=== PATIENT | female | born 1965 | race Caucasian/White ===

== ENCOUNTER → 2017-02-08 | Outpatient (CLI) | payer BC, OTHER ==
[~2017-02-08] MED LIST: LORTAB 5/500 501 TAB PO; NO HOME MEDICATIONS
== END ==
LOC: MC.RAD 10:16
DX: Z12.31 Encounter for screening mammogram for malignant neoplasm of breast (principal)

== ENCOUNTER 2017-10-03 19:20 | Emergency (ER) | payer BC, OTHER ==
[~2017-10-03] VITALS: Ht 160 cm; Wt 68.0 kg
[2017-10-03 19:30] VITALS: BP 160/67; TEMP 97.7
[2017-10-03 19:40] LABS: COLLECTION METHOD CLEAN CATCH
[2017-10-03 19:48] LABS: PH 7 (5-8); SQUAMOUS EPITHELIAL 0-2 /hpf; URINE APPEARANCE Clear; URINE BACTERIA None Seen /hpf; URINE BILIRUBIN Negative (NEGATIVE); URINE BLOOD 3+ (NEGATIVE); URINE COLOR Straw; URINE GLUCOSE Negative (NEGATIVE); URINE KETONE Negative (NEGATIVE); URINE LEUKOCYTE ESTERASE 3+ (NEGATIVE); URINE NITRATE Negative (NEGATIVE); URINE PROTEIN(semi-quant) Negative (NEGATIVE); URINE RBC None Seen /hpf; URINE UROBILINOGEN Negative (NEGATIVE)
[2017-10-03] MEDS ORDERED: TAPAZOLE5 MG PO (19:55)
[2017-10-03] MEDS ORDERED: PYRIDIUM 100MG100 MG PO (20:27)
[2017-10-03] MEDS ORDERED: CEFTIN 250250 MG/TAB PO (20:27)
[2017-10-03 20:42] VITALS: PULSE 80
== END 2017-10-03 20:39 | disposition home or self-care (01) ==
LOC: COL.ER 19:20
PROVIDERS: Nurse Practitioner
DX: N39.0 Urinary tract infection, site not specified (principal); E03.9 Hypothyroidism, unspecified; Z87.891 Personal history of nicotine dependence

== ENCOUNTER → 2018-05-02 | Outpatient (CLI) | payer BC, OTHER ==
[~2018-05-02] MED LIST changes: +CEFTIN 250250 MG/TAB PO; +PYRIDIUM 100MG100 MG PO; +TAPAZOLE5 MG PO
== END ==
LOC: MC.RAD 12:54
DX: N60.01 Solitary cyst of right breast (principal); N60.02 Solitary cyst of left breast
CPT/HCPCS: G0279

== ENCOUNTER → 2019-05-20 | Outpatient (CLI) | payer BC, OTHER | LOC: MC.RAD 10:18 | DX: Z12.31 Encounter for screening mammogram for malignant neoplasm of breast (principal); N63.10 Unspecified lump in the right breast, unspecified quadrant ==

== ENCOUNTER → 2020-06-05 | Outpatient (CLI) | payer BC, OTHER | LOC: MC.RAD 13:36 | DX: Z12.31 Encounter for screening mammogram for malignant neoplasm of breast (principal); N63.20 Unspecified lump in the left breast, unspecified quadrant ==

== ENCOUNTER → 2020-06-11 | Outpatient (CLI) | payer BC, OTHER | LOC: MC.RAD 06:51 | DX: N60.02 Solitary cyst of left breast (principal) ==

== ENCOUNTER → 2023-11-17 | Outpatient (CLI) | payer BC, OTHER | LOC: MC.RAD 13:22 | DX: Z12.31 Encounter for screening mammogram for malignant neoplasm of breast (principal); N63.14 Unspecified lump in the right breast, lower inner quadrant ==